=== PATIENT | male | born 1965 | race Asian ===

== ENCOUNTER 2017-10-13 14:35 | Outpatient (CLI) | payer OTHER ==
[~2017-10-13] VITALS: Ht 160 cm; Wt 68.0 kg
== END 2017-10-13 14:50 | disposition home or self-care (01) ==
LOC: OFIC 805 14:35
DX: H91.8X1 Other specified hearing loss, right ear (principal)

== ENCOUNTER 2017-10-28 14:14 | Outpatient (CLI) | payer OTHER ==
[~2017-10-28] VITALS: Ht 152.4 cm; Wt 68.0 kg
== END 2017-10-28 14:30 | disposition home or self-care (01) ==
LOC: OFIC 805 14:14
DX: H72.2X2 Other marginal perforations of tympanic membrane, left ear (principal); H69.82 Other specified disorders of Eustachian tube, left ear; R09.81 Nasal congestion

== ENCOUNTER 2017-10-31 08:41 | Outpatient (CLI) | payer OTHER ==
[~2017-10-31] VITALS: Ht 152.4 cm; Wt 68.0 kg
== END 2017-10-31 09:00 | disposition home or self-care (01) ==
LOC: OFIC 805 08:41
DX: H69.83 Other specified disorders of Eustachian tube, bilateral (principal); H72.93 Unspecified perforation of tympanic membrane, bilateral; H90.6 Mixed conductive and sensorineural hearing loss, bilateral; H70.13 Chronic mastoiditis, bilateral

== ENCOUNTER 2017-11-07 09:40 | Outpatient (CLI) | payer OTHER ==
[~2017-11-07] VITALS: Ht 152.4 cm; Wt 68.0 kg
== END 2017-11-07 10:05 | disposition home or self-care (01) ==
LOC: OFIC 805 09:40
DX: H90.6 Mixed conductive and sensorineural hearing loss, bilateral (principal); R09.81 Nasal congestion; H68.013 Acute Eustachian salpingitis, bilateral; H72.92 Unspecified perforation of tympanic membrane, left ear

== ENCOUNTER 2022-12-31 12:49 | Emergency (ER) | payer OTHER ==
[~2022-12-31] VITALS: Ht 162.6 cm; Wt 68.0 kg
[2022-12-31] MEDS ORDERED: OMEPRAZOLE MAGN20 MG PO ×2 (22:22→22:23)
== END 2022-12-31 23:00 | disposition home or self-care (01) ==
LOC: ER 12:49
DX: K52.89 Other specified noninfective gastroenteritis and colitis (principal); A05.9 Bacterial foodborne intoxication, unspecified; E86.0 Dehydration; I10 Essential (primary) hypertension